=== PATIENT | female | born 1995 | race Hispanic/Latino ===

== ENCOUNTER 2024-06-27 21:52 | Emergency (ER) | payer OTHER ==
[~2024-06-27] VITALS: Ht 154.9 cm; Wt 66.2 kg
[2024-06-27] MEDS ORDERED: FAMOTIDINE 20 MG/2 ML VIAL IV ONE (23:30)
[2024-06-27] MEDS: LABETALOL HCL 5 MG/ML 20ML VIAL IV STA (23:47)
[2024-06-27] MEDS: FAMOTIDINE 20 MG/2 ML VIAL IV STA (23:49)
[2024-06-27] MEDS: ACETAMINOPHEN 325 MG TAB PO ONE (23:50)
[2024-06-28 00:30] VITALS: PULSE 84; RESP 18; TEMP 98.4
[2024-06-28] MEDS: SODIUM CHLORIDE 0.9% 1000ML 1,000 ML IV SCH (01:46)
[2024-06-28 02:05] VITALS: BP 118/76; PULSE 84; RESP 18; TEMP 98.4; O2SAT 98
== END 2024-06-28 02:15 | disposition other institution (70) ==
LOC: FSED 22:24
DX: O26.892 Other specified pregnancy related conditions, second trimester (principal); R10.13 Epigastric pain; R51.9 Headache, unspecified; I10 Essential (primary) hypertension
CPT/HCPCS: 70450; 76805; 80048; 80076; 80307; 81003; 84484; 85025; 93005; 99284; J1308; J7030